=== PATIENT | female | born 1985 | race Two or more races ===

== ENCOUNTER 2018-09-27 18:33 | Emergency (ER) | payer SELFPAY ==
[2018-09-27 18:41] VITALS: BP 147/71
--- NOTE | 2018-09-27 19:01 | EDPHY ---
H & P Time Seen by Provider: 09/27/18 18:38 HPI/ROS: CHIEF COMPLAINT: Left buttock and left leg pain History by patient HISTORY OF PRESENT ILLNESS: 33-year-old woman with no significant past medical history presents complaining of gradual worsening of left buttock and upper leg pain which radiates to her knee. It does not feel like an electric shock but she does have some numbness and tingling in her toes. Pain is exacerbated by walking or lying flat on her back. She has had a similar episode in the past and was told she had sciatica at that time. She took some Tylenol with codeine that she had from home with some relief, but she has run out and the pain has returned. She is visiting here from [place] where she lives. Patient denies any back pain and has had no trouble controlling her bowel or bladder. REVIEW OF SYSTEMS: As in HPI, and all other systems reviewed and are negative Smoking Status: Current every day smoker Physical Exam: General Appearance: Alert, nontoxic-appearing, tattooed. Head: Normocephalic, atraumatic Eyes: Pupils equal and round, no pallor or injection. ENT, Mouth: Mucous membranes moist. Neck: No bony tenderness, full range of motion Gastrointestinal: Abdomen is soft and nontender, no masses, bowel sounds normal. Neurological: Awake, alert and oriented x 3, no pronator drift, limping gait, no pronator drift, DTRs 2+ and equal bilaterally in knees and ankles, some pain with straight leg raise, bilaterally and hips laterally but no radiation below the knee, strength is 5/5 and equal bilaterally in lower extremities, patient can stand on her heels and toes, subjective sensation different in the the left foot but pressure, light touch and pain intact Back: No bony tenderness, no tenderness in the hips or buttocks, no CVA tenderness Skin: Warm and dry, no rashes. Musculoskeletal: Neck is supple, FROM, nontender., full range of motion of left hip and knee Extremities: symmetrical, full range of motion. Psychiatric: Patient has normal affect, there is no agitation. Constitutional: Initial Vital Signs Temperature (C) 36.5 C 09/27/18 18:38 Heart Rate 85 09/27/18 18:38 Respiratory Rate 18 09/27/18 18:38 Blood Pressure 147/71 H 09/27/18 18:38 O2 Sat (%) 94 09/27/18 18:38 O2 Delivery Mode Room Air Allergies/Adverse Reactions: Penicillins Allergy (Verified 09/27/18 18:38) Home Medications: Medication Instructions Recorded Cyclobenzaprine [Flexeril 10 MG 10 mg PO TID #10 tab 09/27/18 (*)] MDM/Departure - [facility] ED Course/Re-evaluation: 33-year-old woman presents with typical signs symptoms of sciatica without neurologic impairment. There is no evidence of cauda equina syndrome. Will treat patient symptomatically. We discussed home care and return precautions. - Depart Disposition: Home, Routine, Self-Care Clinical Impression: Sciatica of left side, Leg pain, left Condition: Good Instructions: Sciatica (ED), Piriformis Syndrome (ED) Additional Instructions: You were seen by Dr. Gina Donis today. You have sciatica, inflammation of the sciatic nerve and the muscles around it. I recommend continuing the naproxen. You may take up to 500 mg twice a day. Take with food. You may also add acetaminophen 1000 mg 4 times a day for additional pain relief. Use also Flexeril, muscle relaxant as needed. Avoid bed rest. Do light activity but avoid things that make her pain worse until you are feeling better. Return for any worsening or new concerns. Prescriptions: Cyclobenzaprine [Flexeril 10 MG (*)] 10 mg PO TID #10 tab
[2018-09-27] MEDS ORDERED: CYCLOBENZAPRINE 10 MG TAB PO ONE (19:07)
== END 2018-09-27 19:15 | disposition home or self-care (01) ==
LOC: CED 18:33
DX: M54.42 Lumbago with sciatica, left side (principal)

== ENCOUNTER 2018-09-30 15:31 | Emergency (ER) | payer SELFPAY ==
[2018-09-30] MEDS ORDERED: DIAZEPAM 5 MG TAB PO ONE (16:15)
[2018-09-30] MEDS ORDERED: OXYCODONE/APAP 5/325 TAB PO ONE (16:25)
--- NOTE | 2018-09-30 16:28 | EDPHY ---
H & P Time Seen by Provider: 09/30/18 15:55 HPI/ROS: This patient reports worsening of her left sciatic pain since being seen here at [facility] 4 days ago. She has been trying the Flexeril in conjunction with Tylenol and naproxen with an significant relief. She reports severe symptoms despite 2 leave this morning Tylenol and a Flexeril less than 8 hr ago. She also has a feeling of weakness in the left foot a came on over the past few days. She denies any other symptoms. She reports that the pain radiates down from the sciatic notch region down her leg past the knee. Prior to this week she never had this pain or problem before. ROS: Constitutional: No fevers or chills HEENT: No complaints Pulmonary: No complaints Cardiovascular: No swelling to the affected lower extremity GI: Nausea that she attributes to pain with no vomiting. : No dysuria. Integumentary: No skin rash Neuro: As per HPI. No bowel or bladder incontinence. No other focal complaints. 10 point review of symptoms is performed and otherwise negative with exception of pertinent positives and negatives listed in HPI and ROS Past Medical/Surgical History: Presented here with sciatica 4 days ago without any sensory deficits or radiculopathy at that time Social History: She is traveling from the on vacation for the next 2 weeks. No recreational drug use. Smoking Status: Current every day smoker Physical Exam: Vital signs are notable for mild hypertension. Otherwise normal General Appearance: Patient is tearful due to pain. Alert, no distress. Eyes: Pupils equal and round no pallor or injection. ENT, Mouth: Mucous membranes moist. Respiratory: There are no retractions, lungs are clear to auscultation. Cardiovascular: Regular rate and rhythm. No murmur gallop or rub Gastrointestinal: Abdomen is soft and nontender, no masses, bowel sounds normal. Back: No midline tenderness. She does have tenderness at the sciatic notch and positive straight leg raise on the left. Neurological: GCS 15. She has diminished sensation in a stocking distribution in the left foot. DTRs are notable for diminished Achilles on the left or as patellar and Achilles DTRs are 2+ throughout with exception of the left Achilles weak and DTR. Despite this she maintains good strength in great toe dorsiflexion and plantar flexion. Skin: Warm and dry, no rashes. Musculoskeletal: Neck is supple nontender. Extremities are symmetrical, full range of motion. Psychiatric: Tearful due to pain. Otherwise mood and affect are normal. DIFFERENTIAL DIAGNOSIS: After history and physical exam differential diagnosis was considered for S1 radiculopathy with possible L5 to lesser degree. Sciatica , bony abnormality-lumbar Constitutional: Initial Vital Signs Heart Rate 92 09/30/18 15:38 Respiratory Rate 16 09/30/18 15:38 Blood Pressure 154/97 H 09/30/18 15:38 O2 Sat (%) 96 09/30/18 15:38 O2 Delivery Mode Room Air Allergies/Adverse Reactions: Penicillins Allergy (Verified 09/30/18 15:38) Home Medications: Medication Instructions Recorded Cyclobenzaprine [Flexeril 10 MG 10 mg PO TID #10 tab 09/27/18 (*)] ACETAMINOPHEN 09/30/18 Gabapentin [Neurontin 300 MG (*)] 300 mg PO AD PRN #30 cap 09/30/18 Methocarbamol [Robaxin 750 mg (*)] 750 - 1,500 mg PO QID PRN #30 tab 09/30/18 Naproxen 09/30/18 methylPREDNISolone [Medrol Dose 4 mg PO AD #1 packet 09/30/18 Maikol] oxyCODONE/APAP 5/325 [Percocet 1 - 2 tab PO Q4-6PRN PRN #20 tab 09/30/18 5/325 (*)] MDM/Departure - MDM Imaging Results: Imaging Impressions Lumbar Spine X-Ray 09/30/18 16:52 Impression: Disk space loss and possible scoliosis. If symptoms persist, MRI could be considered for further evaluation. Medications Given: Discontinued Medications Diazepam (Valium) 10 mg PO EDNOW ONE Stop: 09/30/18 16:16 Last Admin: 09/30/18 16:19 Dose: 10 mg Oxycodone/Acetaminophen (Percocet 5/325) 2 tab PO EDNOW ONE Stop: 09/30/18 16:26 Last Admin: 09/30/18 16:36 Dose: 2 tab ED Course/Re-evaluation: Valium and Percocet with partial relief. Discussion: Patient presents with findings consistent with sciatica with an S1 radiculopathy in the left-diminished Achilles DTR. No evidence of cauda equina or other red flag findings. Her x-ray demonstrates no significant abnormalities other may be mild space loss at L5-S1 and mild scoliosis away from the affected side. I spoke with Dr. Parks-neurosurgeon law office receptionist regarding this patient. He agrees with plan for Medrol Dosepak, gabapentin, muscle relaxants and opiates if needed with follow-up within the next 2 weeks with a neurosurgeon for recheck. Patient explains that she be back in the [place] before then would prefer to see a physician in the [place] for follow-up. I did provide the outpatient physician on- call as a backup plan if she has ongoing symptoms despite treatment plan. She understands need to return emergency department if she develops worsening symptoms despite current DC plan. - Depart Disposition: Home, Routine, Self-Care Clinical Impression: Lumbosacral radiculopathy at S1 Sciatica Qualifiers: Laterality: left Qualified Code(s): M54.32 - Sciatica, left side Condition: Good Instructions: Lumbar Radiculopathy (ED) Additional Instructions: Diagnosis: Sciatica with S1 radiculopathy Plan: Medrol dose pack and after you finish that, start Ibuprofen 400-600 mg per 6 hours regularly for the next week then as needed. Gabapentin in addition as needed for pain Methocarbamol muscle relaxants as needed. Tylenol and/or percocet in addition if needed for pain that prevents sleep. No driving alcohol or work on percocet. Starts daily stretches prior to taking muscle relaxants and Vicodin in the morning. 3-5 minutes each of: "Butterfly stretch," "Sphinx stretch", "pigeon stretch", and hamstring stretch. Avoid lifting more than 5-10 pounds until symptoms improve. Call your primary care physician for a followup appointment in 3-7 days. Go to the emergency department for worsening of your symptoms despite the treatment plan. Prescriptions: Gabapentin [Neurontin 300 MG (*)] 300 mg PO AD PRN #30 cap PRN Reason: radiculopathy Methocarbamol [Robaxin 750 mg (*)] 750 - 1,500 mg PO QID PRN #30 tab PRN Reason: Muscle Spasms methylPREDNISolone [Medrol Dose Maikol] 4 mg PO AD #1 packet oxyCODONE/APAP 5/325 [Percocet 5/325 (*)] 1 - 2 tab PO Q4-6PRN PRN #20 tab PRN Reason: Pain Referrals: NONE *PRIMARY CARE P,. [Primary Care Provider] - As per Instructions Wanda Latham MD [Medical Doctor] - As per Instructions
[2018-09-30 18:30] VITALS: BP 140/74
== END 2018-09-30 17:50 | disposition home or self-care (01) ==
LOC: CED 15:31
DX: M54.18 Radiculopathy, sacral and sacrococcygeal region (principal); M51.37 Other intervertebral disc degeneration, lumbosacral region; M41.86 Other forms of scoliosis, lumbar region
CPT/HCPCS: 72100-PO